=== PATIENT | male | born 1950 | race Caucasian/White ===

== ENCOUNTER 2019-04-08 08:52 | Day surgery (SDC) | payer MEDICARE, BC ==
[2019-04-05 12:08] VITALS: BMI 28.5
[~2019-04-08 08:52] MED LIST: LACTATED RINGERS 1,000 ML IV SCH; LIDOCAINE 1% 20 ML VIAL (10MG/ML) FOR IV START INTRADERMA PRN
[2019-04-08 09:11] VITALS: RESP 18; TEMP 97.8
[2019-04-08] MEDS ORDERED: LACTATED RINGERS 1,000 ML IV ONE (09:30)
[2019-04-08] MEDS ORDERED: PROPOFOL 10 MG/ML 20 ML VIAL IV ONE (09:57)
[2019-04-08] MEDS ORDERED: LIDOCAINE 1% INJ 10MG/ML (20 ML MDV) ONE (09:57)
--- NOTE | 2019-04-08 10:26 | P.PCN ---
Date of Procedure: 04/08/19 Description of Procedure: BRIEF HISTORY: Patient is a 68-year-old, pleasant, male patient presenting for outpatient EGD for evaluation of symptoms of epigastric abdominal pain. He reports has been present over the past few months. He was started on Prilosec therapy. He reports improvement in the frequency and intensity on PPI therapy however still present. PROCEDURE PERFORMED: Esophagogastroduodenoscopy with biopsy. PREOPERATIVE DIAGNOSIS: Epigastric abdominal pain. ESTIMATED BLOOD LOSS: Minimal. IV sedation per anesthesia. PROCEDURE: After informed consent was obtained, the patient was brought into the endoscopy unit. IV sedation was administered by Anesthesia under continuous monitoring. Initially the Olympus GIF-190 video endoscope was inserted into the mouth. Esophagus intubated without any difficulty. It was gradually advanced into the stomach and duodenum and carefully examined. The bulb and the second part of the duodenum appeared normal, with biopsies taken to rule out celiac sprue. The scope at this time was withdrawn to the stomach, adequately insufflated with air, and upon careful examination, mucosa of the antrum, body, cardia and the fundus appeared grossly normal, however there was diffuse punctate erythema in the antrum and body suggestive of mild gastritis with biopsies taken. The scope was then withdrawn into the esophagus. The GE junction was located at 39 cm from the incisors and biopsied to rule out reflux esophagitis . The esophagus appeared normal. There were no erosions or ulcerations seen and the patient tolerated the procedure well. IMPRESSION: 1. Mild gastritis antrum and body biopsied . 2. Biopsies of the duodenum and GE junction. RECOMMENDATIONS: The findings of this examination were discussed with the patient and his fianc. Okay to resume diet. Okay to resume medications. Await pathology from elsie fontenot.
[2019-04-08 10:57] VITALS: BP 144/78; PULSE 66
== END 2019-04-08 11:14 | disposition home or self-care (01) ==
LOC: ORWHC2ENDO 08:52
PROVIDERS: ATTEND Internal Medicine
DX: K29.80 Duodenitis without bleeding (principal); K29.50 Unspecified chronic gastritis without bleeding; K21.9 Gastro-esophageal reflux disease without esophagitis; Z87.891 Personal history of nicotine dependence; Z80.0 Family history of malignant neoplasm of digestive organs; E78.5 Hyperlipidemia, unspecified; N40.0 Benign prostatic hyperplasia without lower urinary tract symptoms; Z79.899 Other long term (current) drug therapy
CPT/HCPCS: 88305; 43239; J2001; J2704

== ENCOUNTER 2020-10-18 | Inpatient (IN) | payer MEDICARE, BC | END 2020-10-26 16:10 | disposition home health service (06) | DRG 854 | PROVIDERS: ADMIT Internal Medicine | PROC: BF52200 Other Imaging of Gallbladder using Fluorescing Agent, Indocyanine Green Dye, Intraoperative (ICD-10-PCS; principal; 2020-10-21) | PROC: 0FT44ZZ Resection of Gallbladder, Percutaneous Endoscopic Approach (ICD-10-PCS; principal; 2020-10-21) | PROC: 0DNU4ZZ Release Omentum, Percutaneous Endoscopic Approach (ICD-10-PCS; principal; 2020-10-21) | PROC: 8E0W4CZ Robotic Assisted Procedure of Trunk Region, Percutaneous Endoscopic Approach (ICD-10-PCS; principal; 2020-10-21) | DX: A41.9 Sepsis, unspecified organism (principal); K80.63 Calculus of gallbladder and bile duct with acute cholecystitis with obstruction; I42.9 Cardiomyopathy, unspecified; K83.09 Other cholangitis; K82.A1 Gangrene of gallbladder in cholecystitis; I95.9 Hypotension, unspecified; I11.9 Hypertensive heart disease without heart failure; E78.5 Hyperlipidemia, unspecified; Z20.822 Contact with and (suspected) exposure to COVID-19; B96.20 Unspecified Escherichia coli [E. coli] as the cause of diseases classified elsewhere; K66.0 Peritoneal adhesions (postprocedural) (postinfection); K21.9 Gastro-esophageal reflux disease without esophagitis; N40.0 Benign prostatic hyperplasia without lower urinary tract symptoms; I08.0 Rheumatic disorders of both mitral and aortic valves; I45.10 Unspecified right bundle-branch block; Z79.82 Long term (current) use of aspirin; Z79.899 Other long term (current) drug therapy; Z87.891 Personal history of nicotine dependence; Z87.19 Personal history of other diseases of the digestive system; Z90.49 Acquired absence of other specified parts of digestive tract; Z98.890 Other specified postprocedural states; Z85.038 Personal history of other malignant neoplasm of large intestine; Z80.0 Family history of malignant neoplasm of digestive organs; Z80.8 Family history of malignant neoplasm of other organs or systems | CPT/HCPCS: 36410; 36415; 71046; 74018; 76705; 76937; 80048; 80053; 81003; 82550; 83690; 83735; 83880; 84484; 85025; 85027; 85379; 85610; 85730; 87040; 87070; 87075; 87077; 87186; 87205; 87324; 87635; 88304; 93005; 96374; 99285 ==

== ENCOUNTER 2020-12-03 17:11 | Inpatient (IN) | payer MEDICARE, BC ==
[2020-12-03] MEDS ORDERED: SODIUM CHLORIDE 0.9% 500 ML 500 ML IV STA (17:26)
[2020-12-03] MEDS ORDERED: SODIUM CHLORIDE 0.9% 1,000 ML IV STA ×2 (17:26)
[2020-12-03] MEDS ORDERED: ACETAMINOPHEN TAB 325 MG TAB PO STA (17:26)
[2020-12-03] MEDS ORDERED: cefTRIAXone IN SWFI 1,000 MG/10 ML SYRINGE IVP STA (17:27)
--- NOTE | 2020-12-03 17:53 | ED ---
Fever HPI - General Source: patient Mode of arrival: ambulatory Limitations: no limitations <Cole Santana - Last Filed: 12/03/20 19:06> <Abhishek Alvarado - Last Filed: 12/03/20 21:02> - General Chief Complaint: Fever Stated Complaint: PostOp Diarrhea/Fever Time Seen by Provider: 12/03/20 17:26 - History of Present Illness Initial Comments: 70-year-old male presents to emergency room with a chief complaint of fever. Patient reports he is also developed diarrhea earlier today, going up to 10 times to the bathroom. States it is a semi-formed stool. States about 10 days ago he finished IV antibiotics through a midline that he has been taking for approximately several weeks prior after developing necrosis in his gallbladder. States he underwent a cholecystectomy by Dr. Arzola. He denies any nausea or vomiting at this time. Denies any abdominal pain fevers or chills. Denies any URI-like symptoms. Vaccinated. No cough. Denies any obstructive or infectious urinary symptoms. (Cole Santana) - Related Data Home Medications Medication Instructions Recorded Confirmed Simvastatin [Zocor] 80 mg PO DAILY 04/17/15 12/03/20 Loratadine 10 mg PO DAILY 04/05/19 12/03/20 Tamsulosin [Flomax] 0.4 mg PO DAILY 04/05/19 12/03/20 Aspirin EC [Ecotrin Low Dose] 81 mg PO DAILY 10/18/20 12/03/20 Carvedilol [Coreg] 12.5 mg PO BID 10/18/20 12/03/20 Spironolactone 50 mg PO DAILY 10/18/20 12/03/20 Valsartan [Diovan] 320 mg PO HS 10/18/20 12/03/20 amLODIPine [Norvasc] 10 mg PO DAILY 10/18/20 12/03/20 Allergies Allergy/AdvReac Type Severity Reaction Status Date / Time No Known Allergies Allergy Verified 12/03/20 18:12 Review of Systems ROS Other: All systems not noted in ROS Statement are negative. <Cole Santana - Last Filed: 12/03/20 19:06> ROS Other: All systems not noted in ROS Statement are negative. <Abhishek Alvarado - Last Filed: 12/03/20 21:02> ROS Statement: Those systems with pertinent positive or pertinent negative responses have been documented in the HPI. Past Medical History Past Medical History: Hyperlipidemia, Hypertension Additional Past Medical History / Comment(s): states "i have a knot feeling in the top of my stomach",hx colon CA 21 yrs ago-no chemo or radiation,BPH History of Any Multi-Drug Resistant Organisms: None Reported Past Surgical History: Appendectomy, Cholecystectomy Additional Past Surgical History / Comment(s): COLON CANCER BOWEL RESECTION-3 inches removed Past Anesthesia/Blood Transfusion Reactions: No Reported Reaction Past Psychological History: No Psychological Hx Reported Smoking Status: Former smoker Past Alcohol Use History: Occasional Past Drug Use History: None Reported - Past Family History Father Family Medical History: Cancer Additional Family Medical History / Comment(s): colon CA,mets <Cole Santana - Last Filed: 12/03/20 19:06> General Exam Limitations: no limitations General appearance: alert, in no apparent distress Head exam: Present: atraumatic, normocephalic, normal inspection Eye exam: Present: normal appearance, PERRL, EOMI Pupils: Present: normal accommodation ENT exam: Present: normal exam, normal oropharynx, mucous membranes moist Neck exam: Present: normal inspection, full ROM. Absent: tenderness Respiratory exam: Present: normal lung sounds bilaterally. Absent: respiratory distress, wheezes, rales, rhonchi, stridor Cardiovascular Exam: Present: regular rate, normal rhythm, normal heart sounds. Absent: systolic murmur GI/Abdominal exam: Present: soft. Absent: distended, tenderness, guarding, rebound Extremities exam: Present: normal inspection, full ROM, normal capillary refill. Absent: tenderness, pedal edema, joint swelling Back exam: Present: normal inspection, full ROM. Absent: tenderness Neurological exam: Present: alert, oriented X3 Psychiatric exam: Present: normal affect, normal mood Skin exam: Present: warm, dry, intact, normal color <Cole Santana - Last Filed: 12/03/20 19:06> Course Vital Signs 12/03/20 12/03/20 17:17 18:20 Temperature 101.6 F H 99.5 F Pulse Rate 129 H 112 H Respiratory 16 18 Rate Blood Pressure 149/76 120/63 O2 Sat by Pulse 96 95 Oximetry Medical Decision Making - Lab Data Result diagrams: 12/03/20 17:41 12/03/20 17:41 <Cole Santana - Last Filed: 12/03/20 19:06> - Lab Data Result diagrams: 12/03/20 17:41 12/03/20 17:41 <Abhishek Alvarado - Last Filed: 12/03/20 21:02> - Medical Decision Making 70-year-old male presents to emergency room with a chief complaint of fever. On physical examination, no abdominal CVA tenderness. He was initially febrile and tachycardic. Patient was given Tylenol, IV fluids and Rocephin. Laboratory work revealed leukocytosis of 16,000. CMP unremarkable. UA pending. C. diff pending. CT of abdomen and pelvis pending. Lactic acid within normal limits. At this time, patient care signed off to Dr. Alvarado. (Cole Santana) I reevaluated the patient and he continued to have diarrhea in the emergency department however the C. diff was not initially sent for some reason. Patient's CAT scan was done and it did show an area of fluid around the emesis he noted that he could be a seroma versus abscess. I spoke with some physicians he agreed to observe the patient and I consult the surgery to make determination if they thought that was an abscess and a second stool sample was collected and sent. (Abhishek Alvarado) - Lab Data Lab Results 12/03/20 12/03/20 12/03/20 Range/Units 17:41 17:41 17:41 WBC 16.5 H (3.8-10.6) k/uL RBC 4.41 (4.30-5.90) m/uL Hgb 13.7 (13.0-17.5) gm/dL Hct 40.7 (39.0-53.0) % MCV 92.2 (80.0-100.0) fL MCH 31.1 (25.0-35.0) pg MCHC 33.8 (31.0-37.0) g/dL RDW 13.3 (11.5-15.5) % Plt Count 302 (150-450) k/uL MPV 7.6 Neutrophils % 87 % Lymphocytes % 6 % Monocytes % 5 % Eosinophils % 1 % Basophils % 0 % Neutrophils # 14.2 H (1.3-7.7) k/uL Lymphocytes # 1.0 (1.0-4.8) k/uL Monocytes # 0.8 (0-1.0) k/uL Eosinophils # 0.2 (0-0.7) k/uL Basophils # 0.0 (0-0.2) k/uL Sodium 136 L (137-145) mmol/L Potassium 4.4 (3.5-5.1) mmol/L Chloride 105 (98-107) mmol/L Carbon Dioxide 23 (22-30) mmol/L Anion Gap 8 mmol/L BUN 15 (9-20) mg/dL Creatinine 0.70 (0.66-1.25) mg/dL Est GFR (CKD-EPI)AfAm >90 (>60 ml/min/1.73 sqM) Est GFR (CKD-EPI)NonAf >90 (>60 ml/min/1.73 sqM) Glucose 115 H (74-99) mg/dL Plasma Lactic Acid [place] (0.7-2.0) mmol/L Calcium 9.6 (8.4-10.2) mg/dL Total Bilirubin 0.4 (0.2-1.3) mg/dL AST 27 (17-59) U/L ALT 30 (4-49) U/L Alkaline Phosphatase 53 (38-126) U/L Total Protein 6.5 (6.3-8.2) g/dL Albumin 4.2 (3.5-5.0) g/dL Urine Color Light Yellow Urine Appearance Clear (Clear) Urine pH 5.5 (5.0-8.0) Ur Specific [place] 1.036 H (1.001-1.035) Urine Protein Negative (Negative) Urine Glucose (UA) Negative (Negative) Urine Ketones Negative (Negative) Urine Blood Negative (Negative) Urine Nitrite Negative (Negative) Urine Bilirubin Negative (Negative) Urine Urobilinogen <2.0 (<2.0) mg/dL Ur Leukocyte Esterase Negative (Negative) 12/03/20 Range/Units 17:41 WBC (3.8-10.6) k/uL RBC (4.30-5.90) m/uL Hgb (13.0-17.5) gm/dL Hct (39.0-53.0) % MCV (80.0-100.0) fL MCH (25.0-35.0) pg MCHC (31.0-37.0) g/dL RDW (11.5-15.5) % Plt Count (150-450) k/uL MPV Neutrophils % % Lymphocytes % % Monocytes % % Eosinophils % % Basophils % % Neutrophils # (1.3-7.7) k/uL Lymphocytes # (1.0-4.8) k/uL Monocytes # (0-1.0) k/uL Eosinophils # (0-0.7) k/uL Basophils # (0-0.2) k/uL Sodium (137-145) mmol/L Potassium (3.5-5.1) mmol/L Chloride (98-107) mmol/L Carbon Dioxide (22-30) mmol/L Anion Gap mmol/L BUN (9-20) mg/dL Creatinine (0.66-1.25) mg/dL Est GFR (CKD-EPI)AfAm (>60 ml/min/1.73 sqM) Est GFR (CKD-EPI)NonAf (>60 ml/min/1.73 sqM) Glucose (74-99) mg/dL Plasma Lactic Acid [place] 1.0 (0.7-2.0) mmol/L Calcium (8.4-10.2) mg/dL Total Bilirubin (0.2-1.3) mg/dL AST (17-59) U/L ALT (4-49) U/L Alkaline Phosphatase (38-126) U/L Total Protein (6.3-8.2) g/dL Albumin (3.5-5.0) g/dL Urine Color Urine Appearance (Clear) Urine pH (5.0-8.0) Ur Specific [place] (1.001-1.035) Urine Protein (Negative) Urine Glucose (UA) (Negative) Urine Ketones (Negative) Urine Blood (Negative) Urine Nitrite (Negative) Urine Bilirubin (Negative) Urine Urobilinogen (<2.0) mg/dL Ur Leukocyte Esterase (Negative) - EKG Data EKG Comments: Sinus tachycardia with right bundle branch block Ventricular rate 109, [place] 130, QRS 124, QTC 447. (Cole Santana) Disposition <Cole Santana - Last Filed: 12/03/20 19:06> Time of Disposition: 21:02 <Abhishek Alvarado - Last Filed: 12/03/20 21:02> Clinical Impression: Diarrhea, Postoperative complication, Leukocytosis Disposition: ADMITTED IP TO THIS HOSP Referrals: Rip Jung MD [Primary Care Provider] - 1-2 days
[2020-12-03 18:09] LABS: Basophils % (A) 0 %; Eosinophils # (A) 0.2 k/uL (0-0.7); Eosinophils % (A) 1 %; HCT 40.7 % (39.0-53.0); HGB 13.7 gm/dL (13.0-17.5); Lymphocytes % (A) 6 %; MCH 31.1 pg (25.0-35.0); MCHC 33.8 g/dL (31.0-37.0); MCV 92.2 fL (80.0-100.0); Mean Platelet Volume 7.6; Monocytes # (A) 0.8 k/uL (0-1.0); Monocytes % (A) 5 %; Neutrophils # (A) 14.2 k/uL (1.3-7.7); Neutrophils % (A) 87 %; Platelet Count 302 k/uL (150-450); RBC 4.41 m/uL (4.30-5.90); RDW 13.3 % (11.5-15.5); WBC 16.5 k/uL (3.8-10.6)
[2020-12-03 18:19] LABS: ALT 30 U/L (4-49); AST 27 U/L (17-59); African American GFR (CKD) >90 (>60 ml/min/1.73 sqM); Albumin 4.2 g/dL (3.5-5.0); Alkaline Phosphatase 53 U/L (38-126); Anion Gap 8 mmol/L; Blood Urea Nitrogen 15 mg/dL (9-20); Calcium 9.6 mg/dL (8.4-10.2); Carbon Dioxide 23 mmol/L (22-30); Chloride 105 mmol/L (98-107); Glucose 115 mg/dL (74-99); Non-African American GFR(CKD) >90 (>60 ml/min/1.73 sqM); Potassium 4.4 mmol/L (3.5-5.1); Sodium 136 mmol/L (137-145); Total Bilirubin 0.4 mg/dL (0.2-1.3); Total Protein 6.5 g/dL (6.3-8.2)
--- NOTE | 2020-12-03 20:30 | CT ---
EXAMINATION TYPE: CT abdomen pelvis w con DATE OF EXAM: 12/03/2020 COMPARISON: None HISTORY: Diarrhea and fever x2 days. History of recent cholecystectomy. CT DLP: 1347.5 mGycm, Automated Exposure Control for Dose Reduction was Utilized. CONTRAST: CT scan of the abdomen and pelvis is performed with oral and with IV Contrast, patient injected with 100ml mL of Isovue 300. FINDINGS: LUNG BASES: Subsegmental atelectasis. INCLUDED CARDIAC STRUCTURES: Intracardiac calcifications. No cardiac enlargement or pericardial effus ion. LIVER: Mild central periportal edema. GALLBLADDER : Postsurgical changes are seen in the gallbladder fossa. There is a peripheral loculated enhancing fluid collection the gallbladder fossa measuring 4.7 x 3.4 x 2.5 cm (CC, TV, AP) and close proximity to the surgical [place]. Mild surrounding inflammatory changes are noted. BILIARY TREE: No abnormal biliary tree dilation. PANCREAS: No significant abnormality is seen. SPLEEN: No significant abnormality is seen. ADRENALS: No significant abnormality is seen. KIDNEYS AND URETERS: No significant abnormality is seen. URINARY BLADDER: No significant abnormality is appreciated. PROSTATE: Prominent in size. ESOPHAGUS: No significant abnormality is seen. STOMACH: No significant abnormality is seen. SMALL BOWEL: No significant abnormality is seen. LARGE BOWEL: Colonic diverticulosis noted. APPENDIX: Not definitely visualized. HERNIAS: No significant abnormality is seen. PERITONEUM/MESENTRY: No pneumoperitoneum or ascites. LYMPH NODES: No enlarged retroperitoneal or pelvic lymph nodes are appreciated. MAJOR VASCULAR STRUCTURES: Nonaneurysmal aorta. Inferior vena cava and normal location and caliber. A therosclerotic calcifications in the wall of the aorta and its terminal branches. OSSEOUS STRUCTURES: No acute osseous abnormality. Mild to moderate degenerative changes seen in the t horacic and lumbar spine. SOFT TISSUE: Soft tissue swelling over the right, midline and left lower abdomen related to recent [place] rgical access. IMPRESSION: Postsurgical changes are seen in the gallbladder fossa. There is a peripheral loculated enhancing flu id collection in the gallbladder fossa measuring 4.7 x 3.4 x 2.5 cm (CC, TV, AP) in close proximity t o the surgical [place]. Mild surrounding inflammatory changes are noted. This fluid collection may re present an abscess or postsurgical seroma/hematoma. Clinical correlation with recent surgical history recommended. Furthermore given close proximity of this fluid collection into the colonic diverticula a diverticulitis with abscess cannot be entirely excluded however favored to be less likely due to t he recent surgical history. Mild central periportal edema, nonspecific could be reactive.
[2020-12-03 20:59] LABS: Appearance,Urine Clear (Clear); Bilirubin,Urine Negative (Negative); Blood,Urine Negative (Negative); Color,Urine Light Yellow; Glucose,Urine (UA) Negative (Negative); Ketones,Urine Negative (Negative); Leukocyte Esterase,Urine Negative (Negative); Nitrite,Urine Negative (Negative); PH, Urine 5.5 (5.0-8.0); Protein,Urine Negative (Negative); Specific Gravity,Urine 1.036 (1.001-1.035); Urobilinogen,Urine <2.0 mg/dL (<2.0)
[2020-12-04] MEDS ORDERED: ACETAMINOPHEN TAB 325 MG TAB PO PRN (01:19)
--- NOTE | 2020-12-04 01:25 | P.HPIM ---
History of Present Illness H&P Date: 12/03/20 Chief Complaint: Diarrhea 70-year-old male with hypertension, BPH, history of colon cancer status post bowel resection 21 years ago Patient comes in today due to frequent loose bowel movements and fevers. He reports that since surgery that was done about a month and a half ago for lap gisel which showed necrotic gallbladder with mural wall abscesses at the time he was kept on IV antibiotics initially and then switched to oral antibiotics which she finished about 10 days ago. Since then he always had none formed bowel movements sometimes loose, however today he felt very bad with fevers and very frequent loose bowel movements he was going to the bathroom almost every hour denies any any bloody bowel movements or melena denies any abdominal pain denies any chest pain or trouble breathing denies any nausea vomiting. He claims that the day before he was feeling fine and he went biking. In the ED patient was diagnosed with C. diff, he denies any history of C. diff in the past. CT of the abdomen showed fluid collection in the gallbladder fossa near the [place] about 4.73.42.5 cm Blood work showed leukocytosis, normal renal function Review of Systems Pertinent positives as noted in HPI. All other systems were reviewed and are negative Past Medical History Past Medical History: Hyperlipidemia, Hypertension, Prostate Disorder Additional Past Medical History / Comment(s): hx colon CA 21 yrs ago-no chemo or radiation,BPH History of Any Multi-Drug Resistant Organisms: None Reported Past Surgical History: Appendectomy, Cholecystectomy Additional Past Surgical History / Comment(s): COLON CANCER BOWEL RESECTION-3 inches removed Past Anesthesia/Blood Transfusion Reactions: No Reported Reaction Past Psychological History: No Psychological Hx Reported Smoking Status: Former smoker Past Alcohol Use History: Occasional Past Drug Use History: None Reported - Past Family History Father Family Medical History: Cancer Additional Family Medical History / Comment(s): colon CA,mets Medications and Allergies Home Medications Medication Instructions Recorded Confirmed Type Simvastatin [Zocor] 80 mg PO DAILY 04/17/15 12/03/20 History Loratadine 10 mg PO DAILY 04/05/19 12/03/20 History Tamsulosin [Flomax] 0.4 mg PO DAILY 04/05/19 12/03/20 History Aspirin EC [Ecotrin Low Dose] 81 mg PO DAILY 10/18/20 12/03/20 History Carvedilol [Coreg] 12.5 mg PO BID 10/18/20 12/03/20 History Spironolactone 50 mg PO DAILY 10/18/20 12/03/20 History Valsartan [Diovan] 320 mg PO HS 10/18/20 12/03/20 History amLODIPine [Norvasc] 10 mg PO DAILY 10/18/20 12/03/20 History Allergies Allergy/AdvReac Type Severity Reaction Status Date / Time No Known Allergies Allergy Verified 12/03/20 18:12 Physical Exam Vitals: Vital Signs Temp Pulse Resp BP Pulse Ox 12/03/20 18:20 99.5 F 112 H 18 120/63 95 12/03/20 17:17 101.6 F H 129 H 16 149/76 96 Intake and Output 12/03/20 12/03/20 12/03/20 06:59 14:59 22:59 Other: Weight 90.718 kg Constitutional: No acute distress, conversant, pleasant Eyes: Anicteric sclerae, moist conjunctiva, Pupils equal round reactive to light ENMT: NC/AT Oropharynx clear, no erythema, or exudates Neck: Supple, FROM, no masses, or JVD No carotid bruits No thyromegaly Lungs: Clear to auscultation Clear to percussion Normal respiratory effort, no accessory muscle use Cardiovascular: Heart regular in rate and rhythm, No murmurs, gallops, or rubs No peripheral edema Abdominal: Soft, surgical wounds of lap gisel healing well no surrounding induration or erythema no drainage Nontender, no guarding, rebound or rigidity Abdomen moving with respiration Normoactive bowel sounds No hepatomegaly, No splenomegaly No palpable mass No abdominal wall hernia noted Skin: Normal temperature, tone, texture, turgor No induration No subcutaneous nodules No rash, lesions No ulcers Extremities: No digital cyanosis No clubbing Pedal pulses intact and symmetrical Radial pulses intact and symmetrical No calf tenderness Psychiatric: Alert and oriented to person, place and time Appropriate affect fair judgement Neuro Muscles Strength 5/5 in all 4 extremities Sensation to light touch grossly present throughout Cranial nerves II-XII grossly intact No focal sensory deficits Lymphatics: no palpable cervical or supraclavicular , or inguinal lymph nodes Results CBC & Chem 7: 12/03/20 17:41 12/03/20 17:41 Labs: Abnormal Lab Results - Last 24 Hours (Table) 12/03/20 12/03/20 12/03/20 Range/Units 17:41 17:41 17:41 WBC 16.5 H (3.8-10.6) k/uL Neutrophils # 14.2 H (1.3-7.7) k/uL Sodium 136 L (137-145) mmol/L Glucose 115 H (74-99) mg/dL Ur Specific [place] 1.036 H (1.001-1.035) Assessment and Plan Assessment: Acute severe C. diff colitis Patient started on oral vancomycin, continue for 10 days Tylenol for fever when necessary IV fluid hydration with normal saline Contact precautions Follow-up renal function CT findings of fluid collection around the gallbladder fossa new [place], general surgery consult for evaluation, due to recent history of lap gisel about 1.5 months ago Chronic conditions Hypertension resume home medications amlodipine, Coreg, losartan Hyperlipidemia resume statin CODE STATUS: Full code DVT prophylaxis: Heparin subcu 3 times a day Discussed with: Patient, ER, RN Anticipated length of stay more than [address]: Home A total of 75 minutes was spent on the care of this complex patient more than 50 % of the time was spent in counseling and care coordination.
[2020-12-04] MEDS: VALSARTAN 160 MG TAB PO SCH ×2 (01:30→21:12)
[2020-12-04] MEDS: carvediloL 12.5 MG TAB PO SCH ×3 (01:30→17:08)
[2020-12-04] MEDS: VANCOMYCIN 125 MG CAPSULE PO SCH ×5 (01:30→21:12)
[2020-12-04] MEDS: SODIUM CHLORIDE 0.9% 1,000 ML IV SCH ×4 (02:16→22:49)
[2020-12-04 05:58] LABS: Basophils % (A) 0 %; Eosinophils # (A) 0.2 k/uL (0-0.7); Eosinophils % (A) 2 %; HCT 37.2 % (39.0-53.0); HGB 12.7 gm/dL (13.0-17.5); Lymphocytes # (A) 1.5 k/uL (1.0-4.8); Lymphocytes % (A) 13 %; MCH 31.9 pg (25.0-35.0); MCHC 34.2 g/dL (31.0-37.0); MCV 93.2 fL (80.0-100.0); Mean Platelet Volume 7.2; Monocytes # (A) 0.8 k/uL (0-1.0); Monocytes % (A) 7 %; Neutrophils % (A) 77 %; Platelet Count 276 k/uL (150-450); RDW 13.9 % (11.5-15.5); WBC 11.7 k/uL (3.8-10.6)
[2020-12-04] MEDS: TAMSULOSIN 0.4 MG CAP.ER.24H PO SCH (07:55)
[2020-12-04] MEDS: ASPIRIN 81 MG PO SCH (07:55)
[2020-12-04] MEDS: amLODIPine 10 MG TAB PO SCH (07:55)
[2020-12-04] MEDS: HEPARIN SODIUM,PORCINE/PF 5,000 UNIT/0.5 ML SYRINGE SQ SCH ×3 (07:57→22:48)
[2020-12-04] MEDS: ATORVASTATIN 40 MG TAB PO SCH (08:02)
[2020-12-04 11:48] LABS: African American GFR (CKD) 106.4 (60.0-200.0); Anion Gap 8.6 mmol/L (4.00-12.00); BUN/Creat Ratio 12.5 Ratio (12.00-20.00); Calcium 9.1 mg/dL (8.7-10.3); Carbon Dioxide 25.4 mmol/L (21.6-31.8); Non-African American GFR(CKD) 91.8 (60.0-200.0); Potassium 4.3 mmol/L (3.5-5.5)
--- NOTE | 2020-12-04 13:04 | P.PN ---
Subjective Progress Note Date: 12/04/20 Hospital course: Patient is a very pleasant 70-year-old male with a past medical history of hypertension, hyperlipidemia, BPH, and colon cancer status post resection 21 years ago. Patient presented to the emergency department on 12/03/20 with a chief complaint of fever and diarrhea status post recently undergoing a laparoscopic cholecystectomy on 10/21/[address] Booth secondary to findings of a necrotic gallbladder with mural wall abscess which resulted in extended course of IV antibiotics followed by 10 day course of oral antibiotics. Patient reports he recently completed these antibiotics approximately 10 days ago and was concerned when he developed a fever and diarrhea. Upon arrival to the ER patient was found to have elevated temp of 101.6F, tachycardia with heart rate of 102, leukocytosis with WBC count of 16.5, and was positive for Clostridium difficile infection. A CT abdomen and pelvis without contrast was completed revealing postsurgical changes with a peripheral loculated enhancing fluid collection in the gallbladder fossa measuring 4.7 x 3.4 x 2.5 cm with mild surrounding inflammatory changes reported. Patient was started on oral vancomycin and admitted under our services with consultation to general surgery. Physical exam: Patient was seen and fully evaluated at the bedside this morning. He reports continued episodes of diarrhea but significant improvement from yesterday. He denies having any dominant pain, discomfort, or cramping. He denies having any noted melena or hematochezia. Patient also denies any nausea, vomiting, or hematemesis. Vital signs reviewed and stable. General: Nontoxic, no distress and appears stated age. Derm: Skin warm and dry, normal coloration for ethnicity. Head: Atraumatic, normocephalic and symmetric. Eyes: EOMs intact, no lid lag, and anicteric sclera Mouth: no lip lesions, mucus membranes moist Cardiovascular: regular rate and rhythm with normal S1S2, no murmur, positive posterior tibial pulses bilaterally, and cap refill < 2 seconds. Lungs: Respirations even, regular, and unlabored on room air. Lungs CTA bilate rally, no rhonchi, no rales, no wheezing, and no accessory muscle usage. Abdominal: soft, nontender to palpation, no guarding, no appreciable organomegaly Ext: ROM intact. No gross muscle atrophy, no edema, no contractures Neuro: Speech clear, face symmetrical and CN II-XII grossly intact with no noted focal neuro deficits Psych: Alert and oriented to person, place, time, and situation. Appropriate and pleasant affect. Assessment and Plan of Care: Acute severe C. diff colitis -Continue oral vancomycin for 10 days -Tylenol as needed for fever -Continue fluid hydration with IV fluids -Contact precautions Abnormal CT findings of loculated fluid collection in gallbladder fossa status post recent cholecystectomy on 10/21/20 -A CT abdomen and pelvis without contrast was completed revealing postsurgical changes with a peripheral loculated enhancing fluid collection in the gallbladder fossa measuring 4.7 x 3.4 x 2.5 cm with mild surrounding inflammatory changes reported. -NPO until cleared by general surgery -Consult to Gen. surgery Hypertension -Monitor vital signs and continue daily medication regimen with amlodipine and carvedilol Hyperlipidemia -Continue daily medication regimen with simvastatin 80 mg nightly. CODE STATUS: Full code DVT prophylaxis: Heparin Discussed with: Patient, patient's , and RN Anticipated discharge date: Clinical course to determine Anticipated discharge place: Home A total of 45 minutes was spent on the care of this complex patient more than 50% of the time was spent in counseling and care coordination. Objective - Vital Signs Vital signs: Vital Signs Temp 98.5 F 12/04/20 11:26 Pulse 81 12/04/20 11:26 Resp 20 12/04/20 11:26 BP 112/58 12/04/20 11:26 Pulse Ox 94 L 12/04/20 11:26 Intake & Output 12/03/20 12/04/20 12/04/20 18:59 06:59 18:59 Output Total 2 Balance -2 Weight 90.718 kg 90.718 kg Output: Urine 2 Other: Voiding Method Toilet Toilet # Voids 2 # Bowel Movements 4 - Labs CBC & Chem 7: 12/04/20 05:16 12/04/20 05:16 Labs: Abnormal Lab Results - Last 24 Hours (Table) 12/03/20 12/03/20 12/03/20 Range/Units 17:41 17:41 17:41 WBC 16.5 H (3.8-10.6) k/uL RBC (4.30-5.90) m/uL Hgb (13.0-17.5) gm/dL Hct (39.0-53.0) % Neutrophils # 14.2 H (1.3-7.7) k/uL Sodium 136 L (137-145) mmol/L Glucose 115 H (74-99) mg/dL Ur Specific [place] 1.036 H (1.001-1.035) C. difficile (EIA) Intrp (Negative) 12/03/20 12/04/20 12/04/20 Range/Units 21:04 05:16 05:16 WBC 11.7 H (3.8-10.6) k/uL RBC 4.00 L (4.30-5.90) m/uL Hgb 12.7 L (13.0-17.5) gm/dL Hct 37.2 L (39.0-53.0) % Neutrophils # 9.0 H (1.3-7.7) k/uL Sodium (137-145) mmol/L Glucose 119 H (74-99) mg/dL Ur Specific [place] (1.001-1.035) C. difficile (EIA) Intrp Positive A (Negative)
--- NOTE | 2020-12-04 13:49 | P.GSCN ---
History of Present Illness Consult date: 12/04/20 History of present illness: CHIEF COMPLAINT: Diarrhea HISTORY OF PRESENT ILLNESS: This is a 70-year-old male who was hospitalized in September 2020 with a gangrenous cholecystitis and sepsis and is status post robotic- assisted subtotal cholecystectomy. Also has a history of colon cancer status post bowel resection 21 years ago, hypertension BPH and hyperlipidemia. Patient presents to the hospital with complaints of diarrhea and fever. Symptoms started yesterday. He has had multiple loose watery stools. He was concerned because he continued to have a fever. He came into the hospital for further evaluation and treatment. He finished antibiotics 10 days ago and had been on them for his gangrenous gallbladder. His stool study was positive for C. diff colitis and he has been started on oral vancomycin. He has had fever, tachycardia and elevated white count. He had a computed tomography scan of the abdomen and pelvis completed that had shown a fluid collection in the gallbladder fossa and therefore surgical consult was placed. Patient denies any right upper quadrant abdominal pain. He denies any drainage from his incision sites. PAST MEDICAL HISTORY: See list. PAST SURGICAL HISTORY: See list. MEDICATIONS: See list. ALLERGIES: See list. SOCIAL HISTORY: No illicit drug use. REVIEW OF SYSTEMS: CONSTITUTIONAL: Denies fever or chills. HEENT: Denies blurred vision, vision changes, or eye pain. Denies hemoptysis ENDOCRINE: Denies heat or cold intolerance. CARDIOVASCULAR: Denies chest pain or pressure. RESPIRATORY: No shortness of breath. GASTROINTESTINAL: Denies abdominal pain. Denies nausea or vomiting. NEURO: Denies history of seizures. PSYCH: No depression or suicidal ideation HEMATOLOGIC: Denies bleeding disorders. LYMPHATIC: The patient denies any lumps and bumps around the neck. GENITOURINARY: Denies any blood in urine or increased urinary frequency. MUSCULOSKELETAL: Denies myalgias. Denies joint swelling. Denies decreased range of motion beyond patients baseline. SKIN: Denies pruitis. Denies rash. PHYSICAL EXAM: VITAL SIGNS: Reviewed GENERAL: Well-developed in no acute distress. HEENT: No sclera icterus. Extraocular movements grossly intact. Moist buccal mucosa. Head is atraumatic, normocephalic. Hears conversational speech. No nasal drainage. NECK: Supple without lymphadenopathy. CHEST: Non-labored respirations and equal bilateral excursions. CARDIOVASCULAR: Palpable 2+ radial pulses. ABDOMEN: Soft. Nondistended. Nontender. Incision sites have healed. No evidence of drainage or infection. MUSCULOSKELETAL: No clubbing or cyanosis. NEUROLOGIC: No focal or lateralizing signs. Cranial nerves II through XII grossly intact. PSYCH: Appropriate affect. Alert and oriented to person, place and time. SKIN: Well perfused. Good skin turgor. LABORATORY DATA: WBC 16.5 down to 11.7 hemoglobin 12.7 creatinine 0.8 LFTs normal Urinalysis negative Stool for C. diff positive Covid not detected IMAGING: Computed tomography scan abdomen and pelvis shows postsurgical changes are seen in gallbladder fossa. There is a peripheral loculated enhancing fluid collection in the gallbladder fossa measuring 4.7 x 3.4 x 2.5 cm in close proximity to the surgical [place]. Mild surrounding inflammatory changes are noted. This fluid collection may represent an abscess O post surgical seroma, hematoma. Clinical correlation with recent surgical history recommended. ASSESSMENT: 1. Diarrhea with stool study positive for C. diff colitis 2. Fluid collection noted in the gallbladder fossa is a suspected finding after robotic cholecystectomy. No evidence of infection or complication after surg fredy. PLAN: -Recommend infectious disease consults due to recent antibiotic use and current C. diff colitis infection. Dr. Valladares had managed patient's antibiotics in the outpatient setting. -No plans for surgical intervention -Continue supportive care Thank you for this consultation Physician Caretaker note has been reviewed by physician. Signing provider agrees with the documented findings, assessment, and plan of care. Past Medical History Past Medical History: Hyperlipidemia, Hypertension, Prostate Disorder Additional Past Medical History / Comment(s): hx colon CA 21 yrs ago-no chemo or radiation,BPH History of Any Multi-Drug Resistant Organisms: None Reported Past Surgical History: Appendectomy, Cholecystectomy Additional Past Surgical History / Comment(s): COLON CANCER BOWEL RESECTION-3 inches removed Past Anesthesia/Blood Transfusion Reactions: No Reported Reaction Past Psychological History: No Psychological Hx Reported Smoking Status: Former smoker Past Alcohol Use History: Occasional Past Drug Use History: None Reported - Past Family History Father Family Medical History: Cancer Additional Family Medical History / Comment(s): colon CA,mets Medications and Allergies Home Medications Medication Instructions Recorded Confirmed Type Simvastatin [Zocor] 80 mg PO DAILY 04/17/15 12/03/20 History Loratadine 10 mg PO DAILY 04/05/19 12/03/20 History Tamsulosin [Flomax] 0.4 mg PO DAILY 04/05/19 12/03/20 History Aspirin EC [Ecotrin Low Dose] 81 mg PO DAILY 10/18/20 12/03/20 History Carvedilol [Coreg] 12.5 mg PO BID 10/18/20 12/03/20 History Spironolactone 50 mg PO DAILY 10/18/20 12/03/20 History Valsartan [Diovan] 320 mg PO HS 10/18/20 12/03/20 History amLODIPine [Norvasc] 10 mg PO DAILY 10/18/20 12/03/20 History Allergies Allergy/AdvReac Type Severity Reaction Status Date / Time No Known Allergies Allergy Verified 12/03/20 18:12 Surgical - Exam Vital Signs Temp Pulse Resp BP Pulse Ox 101.6 F H 129 H 16 149/76 96 12/03/20 17:17 12/03/20 17:17 12/03/20 17:17 12/03/20 17:17 12/03/20 17:17 Results - Labs 12/04/20 05:16 12/04/20 05:16 Abnormal Lab Results - Last 24 Hours (Table) 12/03/20 12/03/20 12/03/20 Range/Units 17:41 17:41 17:41 WBC 16.5 H (3.8-10.6) k/uL RBC (4.30-5.90) m/uL Hgb (13.0-17.5) gm/dL Hct (39.0-53.0) % Neutrophils # 14.2 H (1.3-7.7) k/uL Sodium 136 L (137-145) mmol/L Glucose 115 H (74-99) mg/dL Ur Specific [place] 1.036 H (1.001-1.035) C. difficile (EIA) Intrp (Negative) 12/03/20 12/04/20 12/04/20 Range/Units 21:04 05:16 05:16 WBC 11.7 H (3.8-10.6) k/uL RBC 4.00 L (4.30-5.90) m/uL Hgb 12.7 L (13.0-17.5) gm/dL Hct 37.2 L (39.0-53.0) % Neutrophils # 9.0 H (1.3-7.7) k/uL Sodium (137-145) mmol/L Glucose 119 H (74-99) mg/dL Ur Specific [place] (1.001-1.035) C. difficile (EIA) Intrp Positive A (Negative) Diabetes panel 12/03/20 12/04/20 Range/Units 17:41 05:16 Sodium 136 L 141 (137-145) mmol/L Potassium 4.4 4.3 (3.5-5.1) mmol/L Chloride 105 107 (98-107) mmol/L Carbon Dioxide 23 25.4 (22-30) mmol/L BUN 15 10.0 (9-20) mg/dL Creatinine 0.70 0.8 (0.66-1.25) mg/dL Glucose 115 H 119 H (74-99) mg/dL Calcium 9.6 9.1 (8.4-10.2) mg/dL AST 27 (17-59) U/L ALT 30 (4-49) U/L Alkaline Phosphatase 53 (38-126) U/L Total Protein 6.5 (6.3-8.2) g/dL Albumin 4.2 (3.5-5.0) g/dL Calcium panel 12/03/20 12/04/20 Range/Units 17:41 05:16 Calcium 9.6 9.1 (8.4-10.2) mg/dL Albumin 4.2 (3.5-5.0) g/dL Pituitary panel 12/03/20 12/04/20 Range/Units 17:41 05:16 Sodium 136 L 141 (137-145) mmol/L Potassium 4.4 4.3 (3.5-5.1) mmol/L Chloride 105 107 (98-107) mmol/L Carbon Dioxide 23 25.4 (22-30) mmol/L BUN 15 10.0 (9-20) mg/dL Creatinine 0.70 0.8 (0.66-1.25) mg/dL Glucose 115 H 119 H (74-99) mg/dL Calcium 9.6 9.1 (8.4-10.2) mg/dL Adrenal panel 12/03/20 12/04/20 Range/Units 17:41 05:16 Sodium 136 L 141 (137-145) mmol/L Potassium 4.4 4.3 (3.5-5.1) mmol/L Chloride 105 107 (98-107) mmol/L Carbon Dioxide 23 25.4 (22-30) mmol/L BUN 15 10.0 (9-20) mg/dL Creatinine 0.70 0.8 (0.66-1.25) mg/dL Glucose 115 H 119 H (74-99) mg/dL Calcium 9.6 9.1 (8.4-10.2) mg/dL Total Bilirubin 0.4 (0.2-1.3) mg/dL AST 27 (17-59) U/L ALT 30 (4-49) U/L Alkaline Phosphatase 53 (38-126) U/L Total Protein 6.5 (6.3-8.2) g/dL Albumin 4.2 (3.5-5.0) g/dL
--- NOTE | 2020-12-05 07:05 | CONS ---
CONSULTATION DATE OF SERVICE: 12/04/2020 REASON FOR CONSULTATION: C-difficile colitis. HISTORY OF PRESENT ILLNESS: The patient is a 70-year-old male who was recently admitted to this facility and did have a gangrenous cholecystitis status post cholecystectomy. The patient was treated with IV antibiotic therapy followed by a course of oral antibiotics and the patient completed the antibiotic about 2 weeks ago. The patient did have repeat blood work done on 11/30/2020. The patient did have a normal WBC, normal CRP and normal sedimentation rate and the patient did not have any abdominal pain, nausea, vomiting or any diarrhea. The patient said he was doing well until the day before presentation to the hospital when he started having diarrhea and the patient was going to the bathroom almost 10 times per day every hour on the hour. The patient did have liquidy stools but no blood or mucus in the stools. The patient denies having any nausea or any vomiting and denies having significant abdominal pain. Did have some fever and chills. With these symptoms, the patient presented to the hospital. On arrival to the ER the patient did have fever of 101.6 degrees Fahrenheit. The patient was mildly tachycardic, not hypoxic or hypotensive. The patient did have white count of 16.5 with left shift. BUN and creatinine were normal. Liver enzymes are normal. Urine was negative. [place] PCR was negative. The patient did have a CT of abdomen and pelvis which did show postsurgical changes seen in the gallbladder fossa. These is peripheral loculated enhancing fluid collection in the gallbladder fossa measuring 4.7 x 3.4 x 2.5 cm with some mild inflammatory changes with concern for postop seroma possibly related to diverticulitis. The patient did have stool for C diff, which came back positive. Started oral vancomycin. Infectious Disease was consulted for further management of antibiotic therapy. REVIEW OF SYSTEMS: Positive points have been mentioned in HPI. Rest of systems are negative. PAST MEDICAL HISTORY: Recent admission to the hospital for a gangrenous cholecystitis, hypertension, hyperlipidemia, colon cancer. PAST SURGICAL HISTORY: Appendectomy, cholecystectomy, bowel resection. SOCIAL HISTORY: Remote history of smoking. Occasionally drinks. No drug use. FAMILY HISTORY: Father with history of colon cancer. ALLERGIES: No known drug allergies. MEDICATIONS: The patient is currently on Tylenol, Norvasc, aspirin, Lipitor, Coreg, heparin, Flomax, Diovan, vancomycin 125 q6h. PHYSICAL EXAMINATION: VITAL SIGNS: Blood pressure 135/70 with a pulse of 91, temperature 98.7. He is 95% on room air. GENERAL DESCRIPTION: The patient is an elderly male lying in bed in no distress. No tachypnea or accessory muscles of respiration use. HEENT: Examination shows no pallor or scleral icterus. Oral mucous membrane is dry. NECK: Trachea central, no thyromegaly. LUNGS: Unlabored breathing, clear to auscultation anteriorly. No wheeze or crackle. HEART: S1-S2, regular rate and rhythm. ABDOMEN: Soft, no tenderness. No guarding or rigidity. EXTREMITIES: No edema of the feet. SKIN: No rash or mass palpable. NEUROLOGICAL: Patient is awake, alert, oriented times three. Mood and affect normal. LABS: Hemoglobin is 12.7, white count 11.7, admission white count 16.5, BUN of 10, creatinine 0.8. DIAGNOSTIC IMPRESSION: 1. Patient admitted to the hospital with sepsis in this patient who did have fever, elevated white count and tachycardia, significant diarrhea. Source is likely C difficile colitis in this patient who was recently admitted to this facility for a gangrenous cholecystitis status post cholecystectomy. C diff to be the likely source of his sepsis and symptomatology. 2. Patient did have abnormal CT raising question of fluid collection in the gallbladder fossa, possible seroma and the patient clinically not behaving as an abscess. The patient's white count and fever responded to the oral vancomycin and no other antibiotic therapy. PLAN: 1. Vancomycin 125 mg p.o. q.6 hours. 2. The patient has been advised to increase the probiotic and yogurt intake. 3. We will follow on his clinical condition and further adjust medication if needed. Thank you for this consultation. Will follow this patient along with you. MMODL / IJN: [id number] /
[2020-12-05] MEDS: HEPARIN SODIUM,PORCINE/PF 5,000 UNIT/0.5 ML SYRINGE SQ SCH (07:46)
[2020-12-05] MEDS: carvediloL 12.5 MG TAB PO SCH (07:46)
[2020-12-05] MEDS: amLODIPine 10 MG TAB PO SCH (07:47)
[2020-12-05] MEDS: ASPIRIN 81 MG PO SCH (07:47)
[2020-12-05] MEDS: VANCOMYCIN 125 MG CAPSULE PO SCH ×2 (07:47→12:39)
[2020-12-05] MEDS: ATORVASTATIN 40 MG TAB PO SCH (07:47)
[2020-12-05] MEDS: TAMSULOSIN 0.4 MG CAP.ER.24H PO SCH (07:47)
--- NOTE | 2020-12-05 09:52 | P.PN ---
Subjective Progress Note Date: 12/05/20 Hospital course: Patient is a very pleasant 70-year-old male with a past medical history of hypertension, hyperlipidemia, BPH, and colon cancer status post resection 21 years ago. Patient presented to the emergency department on 12/03/20 with a chief complaint of fever and diarrhea status post recently undergoing a laparoscopic cholecystectomy on 10/21/[address] Booth secondary to findings of a necrotic gallbladder with mural wall abscess which resulted in extended course of IV antibiotics followed by 10 day course of oral antibiotics. Patient reports he recently completed these antibiotics approximately 10 days ago and was concerned when he developed a fever and diarrhea. Upon arrival to the ER patient was found to have elevated temp of 101.6F, tachycardia with heart rate of 102, leukocytosis with WBC count of 16.5, and was positive for Clostridium difficile infection. A CT abdomen and pelvis without contrast was completed revealing postsurgical changes with a peripheral loculated enhancing fluid collection in the gallbladder fossa measuring 4.7 x 3.4 x 2.5 cm with mild surrounding inflammatory changes reported. Patient was started on oral vancomycin and admitted under our services with consultation to general surgery. Physical exam: Patient was seen and fully evaluated at the bedside this morning. He reports continued episodes of diarrhea but significant improvement from yesterday. He denies having any dominant pain, discomfort, or cramping. He denies having any noted melena or hematochezia. Patient also denies any nausea, vomiting, or hematemesis. Vital signs reviewed and stable. General: Nontoxic, no distress and appears stated age. Derm: Skin warm and dry, normal coloration for ethnicity. Head: Atraumatic, normocephalic and symmetric. Eyes: EOMs intact, no lid lag, and anicteric sclera Mouth: no lip lesions, mucus membranes moist Cardiovascular: regular rate and rhythm with normal S1S2, no murmur, positive posterior tibial pulses bilaterally, and cap refill < 2 seconds. Lungs: Respirations even, regular, and unlabored on room air. Lungs CTA bilate rally, no rhonchi, no rales, no wheezing, and no accessory muscle usage. Abdominal: soft, nontender to palpation, no guarding, no appreciable organomegaly Ext: ROM intact. No gross muscle atrophy, no edema, no contractures Neuro: Speech clear, face symmetrical and CN II-XII grossly intact with no noted focal neuro deficits Psych: Alert and oriented to person, place, time, and situation. Appropriate and pleasant affect. Assessment and Plan of Care: Acute severe C. diff colitis -Continue oral vancomycin for 10 days -Tylenol as needed for fever -Continue fluid hydration with IV fluids -Contact precautions Abnormal CT findings of loculated fluid collection in gallbladder fossa status post recent cholecystectomy on 10/21/20 -A CT abdomen and pelvis without contrast was completed revealing postsurgical changes with a peripheral loculated enhancing fluid collection in the gallbladder fossa measuring 4.7 x 3.4 x 2.5 cm with mild surrounding inflammatory changes reported. -NPO until cleared by general surgery -Consult to Gen. surgery Hypertension -Monitor vital signs and continue daily medication regimen with amlodipine and carvedilol Hyperlipidemia -Continue daily medication regimen with simvastatin 80 mg nightly. CODE STATUS: Full code DVT prophylaxis: Heparin Discussed with: Patient, patient's , and RN Anticipated discharge date: Clinical course to determine Anticipated discharge place: Home A total of 45 minutes was spent on the care of this complex patient more than 50% of the time was spent in counseling and care coordination. Objective - Vital Signs Vital signs: Vital Signs Temp 97.9 F 12/05/20 04:45 Pulse 85 12/05/20 04:45 Resp 16 12/05/20 04:45 BP 132/73 12/05/20 04:45 Pulse Ox 98 12/05/20 04:45 Intake & Output 12/04/20 12/05/20 12/05/20 18:59 06:59 18:59 Intake Total 1420 1300 Balance 1420 1300 Intake: Intake, IV Titration 1420 1000 Amount Sodium Chloride 0.9% 1, 1000 000 ml @ 130 mls/hr IV . Q7H42M DIMITRIOS Rx#:[id number] Sodium Chloride 0.9% 1, 1420 000 ml @ 130 mls/hr IV . Q7H42M STA Rx#:[id number] Oral 300 Other: Voiding Method Toilet Toilet Toilet # Voids 5 # Bowel Movements 4 - Labs CBC & Chem 7: 12/04/20 05:16 12/04/20 05:16 Labs: Abnormal Lab Results - Last 24 Hours (Table) 12/04/20 Range/Units 05:16 Glucose 119 H (70-110) mg/dL Microbiology - Last 24 Hours (Table) 12/03/20 17:41 Blood Culture - Preliminary Blood No Growth after 24 hours 12/03/20 17:41 Blood Culture - Preliminary Blood No Growth after 24 hours
[2020-12-05 13:03] VITALS: BP 132/72; PULSE 69; RESP 17; TEMP 98.1
--- NOTE | 2020-12-05 13:03 | P.DS ---
Providers Date of admission: 12/03/20 21:03 Expected date of discharge: 12/05/20 Attending physician: Kendal Love MD Consults: 12/03/20 21:03 Consult Physician Urgent Consulting Provider: Bobbi Booth Consult Reason/Comments: Postsurgical complications Do you want consulting provider notified?: Yes 12/04/20 11:59 Consult Physician Routine Consulting Provider: Charleen Valladares Consult Reason/Comments: c.diff colitis Do you want consulting provider notified?: Yes Primary care physician: Rip Jung MD Hospital Course: Discharge Diagnosis: Acute severe C. diff colitis Abnormal CT findings of loculated fluid collection in gallbladder fossa status post recent cholecystectomy on 10/21/20 -A CT abdomen and pelvis without contrast was completed revealing postsurgical changes with a peripheral loculated enhancing fluid collection in the gallbladder fossa measuring 4.7 x 3.4 x 2.5 cm with mild surrounding inflammat ory changes reported. -NPO until cleared by general surgery -Consult to Gen. surgery Hypertension -Monitor vital signs and continue daily medication regimen with amlodipine and carvedilol Hyperlipidemia -Continue daily medication regimen with simvastatin 80 mg nightly. Hospital Course: Patient is a very pleasant 70-year-old male with a past medical history of hypertension, hyperlipidemia, BPH, and colon cancer status post resection 21 years ago. Patient presented to the emergency department on 12/03/20 with a chief complaint of fever and diarrhea status post recently undergoing a laparoscopic cholecystectomy on 10/21/[address] Booth secondary to findings of a necrotic gallbladder with mural wall abscess which resulted in extended course of IV antibiotics followed by 10 day course of oral antibiotics. Patient reports he recently completed these antibiotics approximately 10 days ago and was concerned when he developed a fever and diarrhea. Upon arrival to the ER patient was found to have elevated temp of 101.6F, tachycardia with heart rate of 102, leukocytosis with WBC count of 16.5, and was positive for Clostridium difficile infection. A CT abdomen and pelvis without contrast was completed revealing postsurgical changes with a peripheral loculated enhancing fluid collection in the gallbladder fossa measuring 4.7 x 3.4 x 2.5 cm with mild surrounding inflammatory changes reported. Patient was started on oral vancomycin and admitted under our services with consultation to general surgery. Patient was seen and fully evaluated by general surgery, no plans for surgical intervention and patient was cleared from surgical standpoint. ID was also consulted recommending continuation of oral vancomycin 125 mg daily 10 days with encouragement to increase probiotic and yogurt intake. Patient was rehydrated with IV fluids and reports resolution of previously reported diarrhea. Patient is stable for discharge home at this time. Patient to follow up outpatient with PCP in 1-2 days and educated on importance of taking medication exactly as prescribed and completing entire course. Physical exam: Patient was seen and fully evaluated at the bedside this morning. He reports resolution of diarrhea and continues to deny having any adominant pain, nausea, vomiting, melena, hematochezia, or any difficulties with her changes in his urinary function. Vital signs reviewed and stable. General: Nontoxic, no distress and appears stated age. Derm: Skin warm and dry, normal coloration for ethnicity. Head: Atraumatic, normocephalic and symmetric. Eyes: EOMs intact, no lid lag, and anicteric sclera Mouth: no lip lesions, mucus membranes moist Cardiovascular: regular rate and rhythm with normal S1S2, no murmur, positive posterior tibial pulses bilaterally, and cap refill < 2 seconds. Lungs: Respirations even, regular, and unlabored on room air. Lungs CTA bilat erally, no rhonchi, no rales, no wheezing, and no accessory muscle usage. Abdominal: soft, nontender to palpation, no guarding, no appreciable organomegaly Ext: ROM intact. No gross muscle atrophy, no edema, no contractures Neuro: Speech clear, face symmetrical and CN II-XII grossly intact with no noted focal neuro deficits Psych: Alert and oriented to person, place, time, and situation. Appropriate and pleasant affect. A total of 45 minutes of time were spent preparing this complex discharge summary. Plan - Discharge Summary Discharge Rx Participant: No New Discharge Prescriptions: New Vancomycin 125 mg PO QID 8 Days #26 capsule L.acidoph,Paracasei, B.lactis [Probiotic] 1 each PO DAILY 10 Days #10 capsule Continue Simvastatin [Zocor] 80 mg PO DAILY Tamsulosin [Flomax] 0.4 mg PO DAILY Loratadine 10 mg PO DAILY Valsartan [Diovan] 320 mg PO HS Carvedilol [Coreg] 12.5 mg PO BID Aspirin EC [Ecotrin Low Dose] 81 mg PO DAILY amLODIPine [Norvasc] 10 mg PO DAILY Spironolactone 50 mg PO DAILY Discharge Medication List Simvastatin [Zocor] 80 mg PO DAILY 04/17/15 [History] Loratadine 10 mg PO DAILY 04/05/19 [History] Tamsulosin [Flomax] 0.4 mg PO DAILY 04/05/19 [History] Aspirin EC [Ecotrin Low Dose] 81 mg PO DAILY 10/18/20 [History] Carvedilol [Coreg] 12.5 mg PO BID 10/18/20 [History] Spironolactone 50 mg PO DAILY 10/18/20 [History] Valsartan [Diovan] 320 mg PO HS 10/18/20 [History] amLODIPine [Norvasc] 10 mg PO DAILY 10/18/20 [History] L.acidoph,Paracasei, B.lactis [Probiotic] 1 each PO DAILY 10 Days #10 capsule 12/05/20 [Rx] Vancomycin 125 mg PO QID 8 Days #26 capsule 12/05/20 [Rx] Follow up Appointment(s)/Referral(s): Rip Jung MD [Primary Care Provider] - 1-2 days Discharge Disposition: HOME SELF-CARE
--- NOTE | 2020-12-05 15:30 | PN ---
PROGRESS NOTE DATE OF SERVICE: 12/05/2020 REASON FOR FOLLOWUP VISIT: C difficile colitis. INTERVAL HISTORY: The patient is afebrile. The patient is breathing comfortably. The patient denies having any chest pain. No shortness of breath or cough. No abdominal pain. Diarrhea has improved. No blood or mucus in the stool. PHYSICAL EXAMINATION: Blood pressure 132/72 with a pulse of 69, temperature 98.1, he is 94% on room air. General description is an elderly male lying in bed in no distress. Respiratory system: Unlabored breathing, clear to auscultation anteriorly. Heart S1, S2. Regular rate and rhythm. Abdomen soft, no tenderness. Extremities: No edema of the feet. LABS: No new labs have been obtained today. DIAGNOSTIC IMPRESSION AND PLAN: 1. Patient with C difficile colitis. Seems to have shown overall clinical improvement on oral vancomycin. Plan for a 10 day course of oral vanco and close outpatient followup. 2. Patient with abnormal CT showing a collection in the right upper quadrant area. Clinically not behaving as a gallbladder fossa abscess with no pain, no tenderness and the patient's fever responded to the treatment for C difficile. Hence, recommend no further antibiotic and close outpatient followup. Questions and concerns were answered. MMODL / IJN: [id number] /
== END 2020-12-05 15:08 | disposition home or self-care (01) | DRG 373 ==
LOC: EC 17:11 → 5NMEDONC 21:03
PROVIDERS: ADMIT Internal Medicine; ATTEND Internal Medicine
DX: A04.72 Enterocolitis due to Clostridium difficile, not specified as recurrent (principal); E78.5 Hyperlipidemia, unspecified; I10 Essential (primary) hypertension; N40.0 Benign prostatic hyperplasia without lower urinary tract symptoms; Z20.822 Contact with and (suspected) exposure to COVID-19; Z79.82 Long term (current) use of aspirin; Z79.899 Other long term (current) drug therapy; Z85.038 Personal history of other malignant neoplasm of large intestine; Z87.891 Personal history of nicotine dependence; Z90.49 Acquired absence of other specified parts of digestive tract
CPT/HCPCS: 36415; 74177; 80048; 80053; 81003; 83605; 85025; 87040; 87324; 87635; 93005; 96361; 96374; 99285

== ENCOUNTER 2021-03-29 08:24 | Day surgery (SDC) | payer MEDICARE, BC ==
[2021-03-24 09:45] VITALS: BMI 28.5
[~2021-03-29 08:24] MED LIST changes: +LIDOCAINE 1% (10MG/ML) FOR IV START INTRADERMA PRN; -LIDOCAINE 1% 20 ML VIAL (10MG/ML) FOR IV START INTRADERMA PRN
[2021-03-29 08:59] VITALS: TEMP 96.7
--- NOTE | 2021-03-29 09:05 | P.GSHP ---
History of Present Illness H&P Date: 03/29/21 CHIEF COMPLAINT: GERD and colon screen HISTORY OF PRESENT ILLNESS: The patient is a 70-year-old male who presents with gastroesophageal reflux disease and need for colon screen. Upper and lower endoscopy were offered for further evaluation and management. PAST MEDICAL HISTORY: Please see list. PAST SURGICAL HISTORY: Please see list. MEDICATIONS: Please see list. ALLERGIES: Please see list. SOCIAL HISTORY: No illicit drug use FAMILY HISTORY: No reports of Crohn disease or ulcerative colitis. REVIEW OF ORGAN SYSTEMS: CONSTITUTIONAL: No reports of fevers or chills. GI: Denies any blood in stools or constipation. PHYSICAL EXAM: VITAL SIGNS: Stable GENERAL: Well-developed pleasant in no acute distress. HEENT: No scleral icterus. Extraocular movements grossly intact. Moist buccal mucosa. NECK: Supple without lymphadenopathy. CHEST: Unlabored respirations. Equal bilateral excursions. CARDIOVASCULAR: Regular rate and rhythm. Distal 2+ pulses. ABDOMEN: Soft, nondistended. MUSCULOSKELETAL: No clubbing, cyanosis, or edema. ASSESSMENT: 1. Gastroesophageal reflux disease 2. Colon screen. PLAN: 1. Recommend proceeding with an upper and lower endoscopy Past Medical History Past Medical History: Cancer, Hyperlipidemia, Hypertension, Prostate Disorder Additional Past Medical History / Comment(s): hx colon CA 21 yrs ago-no chemo or radiation, BPH, RECENT DAILY DIARRHEA FOR ABOUT 2 WEEKS NOW History of Any Multi-Drug Resistant Organisms: None Reported Past Surgical History: Appendectomy, Bowel Resection, Cholecystectomy, Orthopedic Surgery Additional Past Surgical History / Comment(s): COLON CANCER BOWEL RESECTION-3 inches removed, COLONOSCOPY, EGD, LT KNEE Past Anesthesia/Blood Transfusion Reactions: No Reported Reaction Smoking Status: Former smoker - Past Family History Father Family Medical History: Cancer Additional Family Medical History / Comment(s): colon CA,mets Medications and Allergies Home Medications Medication Instructions Recorded Confirmed Type Simvastatin [Zocor] 80 mg PO DAILY 04/17/15 03/29/21 History Loratadine 10 mg PO DAILY 04/05/19 03/29/21 History Tamsulosin [Flomax] 0.4 mg PO DAILY 04/05/19 03/29/21 History Aspirin EC [Ecotrin Low Dose] 81 mg PO DAILY 10/18/20 03/29/21 History Carvedilol [Coreg] 12.5 mg PO BID 10/18/20 03/29/21 History Spironolactone 50 mg PO DAILY 10/18/20 03/29/21 History Valsartan [Diovan] 320 mg PO HS 10/18/20 03/29/21 History amLODIPine [Norvasc] 10 mg PO DAILY 10/18/20 03/29/21 History L.acidoph,Paracasei, B.lactis 1 each PO DAILY 10 Days #10 capsule 12/05/20 03/29/21 Rx [Probiotic] Allergies Allergy/AdvReac Type Severity Reaction Status Date / Time No Known Allergies Allergy Verified 03/29/21 09:01 Surgical - Exam Vital Signs Temp Pulse Resp BP Pulse Ox 96.7 F L 65 16 130/62 96 03/29/21 08:50 03/29/21 08:50 03/29/21 08:50 03/29/21 08:50 03/29/21 08:50
[2021-03-29] MEDS ORDERED: PROPOFOL 10 MG/ML 20 ML VIAL IV ONE (09:31)
--- NOTE | 2021-03-29 09:56 | P.PCN ---
Date of Procedure: 03/29/21 Description of Procedure: PREOPERATIVE DIAGNOSIS: Change in bowel habits with diarrhea History of Clostridium difficile colitis POSTOPERATIVE DIAGNOSIS: Change in bowel habits with diarrhea History of Clostridium difficile colitis Pandiverticulosis Colitis OPERATION: Colonoscopy to the cecum, ileocecal valve and appendiceal orifice. Colonoscopy with random cold forceps biopsies SPECIMENS: Stool cultures, random biopsies SURGEON: Bobbi Booth MD. ANESTHESIA: MAC. INDICATIONS: The patient is a 70-year-old male who presents for colonoscopy screening. Benefits and risks were described and informed consent was obtained. DESCRIPTION OF PROCEDURE: The patient had undergone Sutab prep. The patient had been brought into the operating room and laid in the left lateral decubitus position. After adequate intravenous sedation, the rectum was examined with 2% lidocaine jelly. No external hemorrhoids were encountered. The rectal tone was within normal limits. No lesions were palpated in the rectal vault. An Olympus colonoscope was advanced until the cecum, ileocecal valve and appendiceal orifice were clearly viewed. The prep was excellent. Scattered diverticulosis was encountered. No colonic polyps were found. Random biopsies with cold forceps for colitis. Stool cultures were obtained. Retroflexion of the scope demonstrated grade 1 internal hemorrhoids without active bleeding or inflammation. The colon was desufflated. The patient had tolerated the procedure well. Withdrawal time was over 6 minutes. FINDINGS: Aronchick preparation quality scale 1 (1-5) Internal hemorrhoids, grade 1 No external prolapsed hemorrhoids. No arteriovenous malformations. No adenomatous polyps. Random biopsies for colitis Stool cultures obtained RECOMMENDATIONS: Lower endoscopy in 5 years, 2025 Plan - Discharge Summary Discharge Rx Participant: Yes New Discharge Prescriptions: Continue Simvastatin [Zocor] 80 mg PO DAILY Tamsulosin [Flomax] 0.4 mg PO DAILY Loratadine 10 mg PO DAILY Valsartan [Diovan] 320 mg PO HS Carvedilol [Coreg] 12.5 mg PO BID Aspirin EC [Ecotrin Low Dose] 81 mg PO DAILY amLODIPine [Norvasc] 10 mg PO DAILY Spironolactone 50 mg PO DAILY L.acidoph,Paracasei, B.lactis [Probiotic] 1 each PO DAILY 10 Days #10 capsule Discharge Medication List Simvastatin [Zocor] 80 mg PO DAILY 04/17/15 [History] Loratadine 10 mg PO DAILY 04/05/19 [History] Tamsulosin [Flomax] 0.4 mg PO DAILY 04/05/19 [History] Aspirin EC [Ecotrin Low Dose] 81 mg PO DAILY 10/18/20 [History] Carvedilol [Coreg] 12.5 mg PO BID 10/18/20 [History] Spironolactone 50 mg PO DAILY 10/18/20 [History] Valsartan [Diovan] 320 mg PO HS 10/18/20 [History] amLODIPine [Norvasc] 10 mg PO DAILY 10/18/20 [History] L.acidoph,Paracasei, B.lactis [Probiotic] 1 each PO DAILY 10 Days #10 capsule 12/05/20 [Rx] Follow up Appointment(s)/Referral(s): Bobbi Booth MD [STAFF PHYSICIAN] - 04/08/21 Patient Instructions/Handouts: Diverticulosis Diet (GEN), Diverticulosis (DC) Activity/Diet/Wound Care/Special Instructions: Repeat colonoscopy 5 years, 2025 Discharge Disposition: HOME SELF-CARE
--- NOTE | 2021-03-29 09:57 | P.PCN ---
Date of Procedure: 03/29/21 Description of Procedure: PREOPERATIVE DIAGNOSIS: Gastroesophageal reflux disease. Epigastric abdominal pain POSTOPERATIVE DIAGNOSIS: Gastroesophageal reflux disease. Epigastric abdominal pain OPERATION: Esophagogastroduodenoscopy with biopsies along antrum. SURGEON: Bobbi Booth MD ANESTHESIA: MAC. INDICATIONS: The patient is a 70-year-old male who presents with a history of reflux disease. Benefits and risks of the procedure were described. Informed consent was obtained. DESCRIPTION: The patient was brought into the endoscopy suite and laid in the left lateral decubitus position. An Olympus gastroscope was passed along the posterior oropharynx down to the distal esophagus where the squamocolumnar junction was encountered at 39 cm from the incisors. The stomach was entered and no bile reflux was found. Additional findings are listed below. Biopsies with cold forceps were obtained of the antrum. The first through third portion of the duodenum was examined and unremarkable. Retroflexion of the scope confirmed Hill grade 3 lower esophageal valve. The squamocolumnar junction demonstrated LA grade A erosive esophagitis. The stomach was desufflated. The patient tolerated the procedure well. FINDINGS: Squamocolumnar junction 39 cm from the incisors. Diaphragmatic hiatus at 40 cm. Hiatal hernia, 1 cm Hill grade 3 lower esophageal valve. LA grade A erosive esophagitis. No active duodenitis. Chronic gastritis RECOMMENDATIONS: Upper endoscopy as needed.
[2021-03-29 10:28] VITALS: BP 111/55; PULSE 58; RESP 20
== END 2021-03-29 10:34 | disposition home or self-care (01) ==
LOC: ORWHC2ENDO 08:24
PROVIDERS: ATTEND Surgery Plastic and Reconstructive Surgery
DX: Z12.11 Encounter for screening for malignant neoplasm of colon (principal); Z86.19 Personal history of other infectious and parasitic diseases; K57.30 Diverticulosis of large intestine without perforation or abscess without bleeding; K64.0 First degree hemorrhoids; K21.9 Gastro-esophageal reflux disease without esophagitis; K22.10 Ulcer of esophagus without bleeding; K29.50 Unspecified chronic gastritis without bleeding; E78.5 Hyperlipidemia, unspecified; I10 Essential (primary) hypertension; Z85.038 Personal history of other malignant neoplasm of large intestine; Z90.49 Acquired absence of other specified parts of digestive tract; Z87.891 Personal history of nicotine dependence; Z80.0 Family history of malignant neoplasm of digestive organs; Z79.82 Long term (current) use of aspirin; Z79.899 Other long term (current) drug therapy; I38 Endocarditis, valve unspecified; N40.0 Benign prostatic hyperplasia without lower urinary tract symptoms
CPT/HCPCS: 87324; 83993; 87045; 87046; 45380; 43239; J2704; 88305

== ENCOUNTER → 2023-11-21 | Outpatient (CLI) | payer MEDICARE, BC ==
--- NOTE | 2023-11-21 11:51 | US ---
EXAMINATION TYPE: US kidneys/renal and bladder DATE OF EXAM: 11/21/2023 COMPARISON: CT CLINICAL INDICATION: Male, 73 years old with history of N18.2 CKD STAGE 2; CKD EXAM MEASUREMENTS: Right Kidney: 11.2 x 5.4 x 5.6 cm Left Kidney: 12.1 x 5.6 x 5.0 cm Right Kidney: No hydronephrosis or masses seen, lower pole gassed out Left Kidney: No hydronephrosis, possible 8mm calculus at mid Bladder: wnl Bilateral Jets seen: No There is no evidence for hydronephrosis at this point in time. No masses are identified. The urinar y bladder is anechoic. Bilateral ureteral jets are seen. IMPRESSION: Nonobstructing left-sided nephrolithiasis.
--- NOTE | 2023-11-21 17:23 | CA ---
Stress Echo Report Josef Alvarenga Age: 73 Gender: M : 1950 Exam Date: 11/21/2023 10:30 Exam Location: [place] [facility] Ht (in): 70 Wt (lb): 215 Ordering Physician: David Galvan MD Referring Physician: Noelle Granger Draw In Hand: Coreen Asif RDCS Technologist Procedure CPT: Indication: I34.1 nonrheumatic mitral valve regurgitation ICD-9 Codes: Rhythm: Patient History: HTN, HYPERCHOLESTEROLEMIA, FAMILY HX OF HEART DISEASE, PRIOR SMOKER Cardiac Medications: Medications in past 24 hours: Contrast: N/A Stress Results Protocol: Fredo Total dose(mL): Exercise Duration (min:sec): 6:[address] Depression (mm): Angina Score: Hutchison Score: METS: 7.3 Resting HR: 114 Resting BP: 156 / 67 Peak HR: 150 Peak BP: 206 / 68 Max Predicted HR: 149 101 % Max Predicted HR Target HR: 127 Double Product: [id number] Stress Summary: BP Response: Reason for Termination: MAX EXERTION/TARGET HT Cardiac Symptoms: NO SYMPTOMS ECG Analysis Resting ECG: Normal sinus rhythm with right bundle branch block Stress ECG: Patient exercised on Fredo protocol for 6 minutes achieving 7 mets 85% of predicted maximal heart rate without chest pain or diagnostic ST segment depression Arrhythmia: Echo Analysis Resting Echo: Baseline echo shows normal left ventricular size wall motion systolic function Aortic valve leaflets appear thickened with mild restriction in leaflet mobility Peak Echo Analysis: Normal hyperdynamic response MEASUREMENTS (Male/Female) Normal Values DOPPLER AV Peak Velocity 230.9 cm/s AV Peak Gradient 21.3 mmHg AV Mean Velocity 151.1 cm/s AV Mean Gradient 11.1 mmHg AV Velocity Time Integral 44.6 cm LVOT Peak Velocity 130.7 cm/s LVOT Peak Gradient 6.8 mmHg LVOT Velocity Time Integral 29.6 cm CONCLUSIONS Average exercise tolerance in Inconclusive EKG part of the stress test due to baseline EKG abnormalities No evidence of ischemia Obtain a 2-D echo for further evaluation of the aortic valve Dr. Oskar Galvan MD (Electronically Signed) Final Date: 21 November 2023 17:22
== END | disposition home or self-care (01) ==
LOC: RADNMMAIN 09:52
PROVIDERS: ATTEND Internal Medicine
DX: I34.0 Nonrheumatic mitral (valve) insufficiency (principal); I35.1 Nonrheumatic aortic (valve) insufficiency; N18.2 Chronic kidney disease, stage 2 (mild); N20.0 Calculus of kidney; R94.31 Abnormal electrocardiogram [ECG] [EKG]
CPT/HCPCS: 76770; 93351

== ENCOUNTER → 2024-04-25 | Outpatient (CLI) | payer MEDICARE, BC ==
--- NOTE | 2024-04-25 11:33 | XR ---
Chest, 2 view. HISTORY: Leukocytosis COMPARISON: 10/18/2020 TECHNIQUE: PA and lateral views the chest are obtained. FINDINGS: The lungs are clear and there is no consolidative or interstitial opacity. There is no pleural effusion or pneumothorax. The heart, pulmonary vasculature, mediastinum and zuleyka appear normal. The osseous structures are intact. IMPRESSION: No significant abnormality seen. No acute cardiopulmonary disease. [facility], Workstation: [facility] 04/25/2024 11:30 AM
== END | disposition home or self-care (01) ==
LOC: RADXRMAIN 11:06
PROVIDERS: ATTEND Internal Medicine
DX: D72.829 Elevated white blood cell count, unspecified (principal)
CPT/HCPCS: 71046

== ENCOUNTER → 2024-08-23 | Outpatient (CLI) | payer MEDICARE, BC ==
[2024-08-23 20:10] LABS: Anti-DNA, DS unit <1.0 IU/mL; DNA Double-Stranded Negative (Negative)
[2024-08-27 11:32] LABS: Histone Antibody 0.6 UNITS (<1.0)
== END | disposition home or self-care (01) ==
LOC: LABWHC1 14:43
PROVIDERS: ATTEND Internal Medicine
DX: R76.8 Other specified abnormal immunological findings in serum (principal)
CPT/HCPCS: 36415; 83516; 86225; 86235

== ENCOUNTER → 2024-10-08 | Outpatient (CLI) | payer MEDICARE, BC ==
[2024-10-08 14:53] VITALS: BP 122/59; PULSE 56; RESP 16; TEMP 97.9
--- NOTE | 2024-10-08 15:48 | P.SLEEP ---
History of Present Illness H&P Date: 10/08/24 This is a 74-year-old male patient, referred to me for sleep apnea evaluation. The patient has been experiencing fatigue and the patient has undergone recent investigation and was found to have low testosterone levels and the patient is currently on testosterone replacement therapy. He continues to have ongoing fatigue symptoms with limited sleepiness. Does not fall asleep while driving. Does not fall asleep while watching television or while talking to other individuals. His current [place] score is at 5. He has occasional snoring. He has BPH and the patient wakes up at least twice in the middle of the night to urinate. He goes to bed at around 10 PM and wakes up at 8 AM in the morning. It takes him around 45 minutes to fall asleep. Since his working days, the patient cannot generate immediate sleep. He is currently retired and the patient used to work as a contracted electrician ship. No recent weight gain. He is quite active during the day. No sleep analysis. No hallucinations. No cataplexy. No anxiety or panic attacks. No heartburn. No issues with memory or concentration. No issues with chronic pain. Comorbidities include hypertension, hyperlipidemia, BPH and history of a cancerous colonic polyp that was surgically resected and the patient is post colectomy. No history of any congestion heart failure. No atrial fibrillation. No substance abuse. No head trauma. No personal or family history of obstructive sleep apnea. Patient drinks alcohol socially. No smoking. No excessive utilization of caffeinated beverages. Review of Systems Constitutional: Reports daytime sleepiness, Reports fatigue Eyes: denies as per HPI, denies blurred vision, denies bulging eye, denies decreased vision, denies diplopia, denies discharge, denies dry eye, denies irritation, denies itching, denies pain, denies photophobia, denies loss of peripheral vision, denies loss of vision, denies tunnel vision/blind spots Ears: deny: decreased hearing, ear discharge, earache, tinnitus Ears, nose, mouth and throat: Reports as per HPI Breasts: absent: as per HPI, gynecomastia Cardiovascular: Reports as per HPI Respiratory: Reports snoring Gastrointestinal: Reports as per HPI Genitourinary: Reports as per HPI, Reports nocturia Musculoskeletal: Reports arm numbness/tingling Musculoskeletal: absent: ankle pain, ankle stiffness, ankle swelling, as per HPI, elbow pain, elbow stiffness, elbow swelling, foot pain, foot stiffness, foot swelling, hand pain, hand stiffness, hand swelling, hip pain, hip stiffness, hip swelling, knee pain, knee stiffness, knee swelling, shoulder pain, shoulder stiffness, shoulder swelling, wrist pain, wrist stiffness, wrist swelling Integumentary: Reports as per HPI Neurological: Reports as per HPI Psychiatric: Reports as per HPI, Reports sleep disturbances Endocrine: Reports fatigue Hematologic/Lymphatic: Reports as per HPI Past Medical History Past Medical History: Cancer, Hyperlipidemia, Hypertension, Prostate Disorder Additional Past Medical History / Comment(s): hx colon CA 21 yrs ago-no chemo or radiation, BPH, RECENT DAILY DIARRHEA FOR ABOUT 2 WEEKS NOW, arthritis unknown type History of Any Multi-Drug Resistant Organisms: None Reported Past Surgical History: Appendectomy, Bowel Resection, Cholecystectomy, Orthopedic Surgery Additional Past Surgical History / Comment(s): COLON CANCER BOWEL RESECTION-3 inches removed, COLONOSCOPY, EGD, LT KNEE Past Anesthesia/Blood Transfusion Reactions: No Reported Reaction Past Psychological History: No Psychological Hx Reported Smoking Status: Former smoker Past Alcohol Use History: Occasional Additional Past Alcohol Use History / Comment(s): quit smoking 35 yrs ago,smoked approx 16 yrs appd Past Drug Use History: None Reported - Past Family History Father Family Medical History: Cancer Additional Family Medical History / Comment(s): colon CA,mets Mother Family Medical History: Coronary Artery Disease (CAD), Hyperlipidemia, Hypertension Medications and Allergies Home Medications Medication Instructions Recorded Confirmed Type Simvastatin [Zocor] 80 mg PO DAILY 04/17/15 03/29/21 History Loratadine 10 mg PO DAILY 04/05/19 03/29/21 History Tamsulosin [Flomax] 0.4 mg PO DAILY 04/05/19 03/29/21 History Aspirin EC [Ecotrin Low Dose] 81 mg PO DAILY 10/18/20 03/29/21 History Spironolactone 50 mg PO DAILY 10/18/20 03/29/21 History Valsartan [Diovan] 320 mg PO HS 10/18/20 03/29/21 History amLODIPine [Norvasc] 10 mg PO DAILY 10/18/20 03/29/21 History carvediloL [Coreg] 12.5 mg PO BID 10/18/20 03/29/21 History L.acidoph,Paracasei, B.lactis 1 each PO DAILY 10 Days #10 capsule 12/05/2003/29 Rx [Probiotic] Allergies Allergy/AdvReac Type Severity Reaction Status Date / Time No Known Allergies Allergy Verified 03/29/21 09:01 Physical Exam Vitals: Vital Signs Temp Pulse Resp BP Pulse Ox 10/08/24 14:52 97.9 F 56 L 16 122/59 95 Intake and Output 10/08/24 10/08/24 10/08/24 06:59 14:59 22:59 Other: Weight 98.883 kg The patient appeared well nourished and normally developed. Vital signs as documented. The patient has a body mass index of 32. Mallampati class III Head exam is unremarkable. No scleral icterus or corneal arcus noted. Neck is without jugular venous distension, thyromegaly, or carotid bruits. Carotid upstrokes are brisk bilaterally. Lungs are clear to auscultation and percussion. Cardiac exam reveals the PMI to be normally sized and situated. Rhythm is regular. First and second heart sounds normal. No murmurs, rubs or gallops. Abdominal exam reveals normal bowel sounds, no masses, no organomegaly and no aortic enlargement. Extremities are nonedematous and both femoral and pedal pulses are normal. Examination of the skin revealed no evidence of significant rashes, suspicious appearing nevi or other concerning lesions. Neurologically, the patient is awake and alert and the patient does not have any focal neurological deficit. Cranial nerves are essentially intact. Assessment and Plan Plan: Chronic fatigue with limited sleepiness. Carnegie score is currently at 5. Patient is being considered for obstructive sleep apnea and the patient was referred to me accordingly to have further investigation. He has occasional snoring. He does have nocturia. Body mass index is 32. Chronic fatigue Hypotestosteronism, currently on testosterone replacement therapy Hypertension Hyperlipidemia BPH with symptoms of nocturia the patient wakes up twice in the middle of the night to urinate History of cancerous malignant colonic polyp post colectomy. Body mass index is 32 Carnegie score is at 5 Plan Will order full polysomnography to evaluate the patient's sleep efficiency, architecture and continuity. Will also look for any underlying sleep breathing disorder and nocturnal oxygen desaturations. Will make further recommendations accordingly. Overall clinical suspicion of obstructive sleep apnea is low based on the reported history. Implement good sleep hygiene measures. Maintain regular sleep schedule. Avoid alcohol drinking at least 3 hours prior to going to bed. Will continue to follow. Sleep Note - Sleep Data ESS Total: 5 - Sleep Note Sleep Note: Temperature: 97.9 F Pulse Rate: 56 Respiratory Rate: 16 Blood Pressure: 122/59 SpO2: 95 Height: 5 ft 9.2 in Weight: 98.883 kg BMI: Neck Circumference: 17.5
== END ==
LOC: 3 N SLEEP 14:13
PROVIDERS: ATTEND Internal Medicine Critical Care Medicine
DX: G47.33 Obstructive sleep apnea (adult) (pediatric) (principal); I10 Essential (primary) hypertension; E78.5 Hyperlipidemia, unspecified; N40.0 Benign prostatic hyperplasia without lower urinary tract symptoms; Z85.038 Personal history of other malignant neoplasm of large intestine; Z87.891 Personal history of nicotine dependence
CPT/HCPCS: 99211

== ENCOUNTER 2024-10-21 19:41 | Outpatient (CLI) | payer MEDICARE, BC ==
--- NOTE | 2024-10-28 23:27 | P.PCN ---
Date of Procedure: 10/21/24 Operative Findings: Polysomnography report History This is a 74-year-old male patient, referred to me for sleep apnea evaluation. The patient has been experiencing fatigue and the patient has undergone recent investigation and was found to have low testosterone levels and the patient is currently on testosterone replacement therapy. He continues to have ongoing fatigue symptoms with limited sleepiness. Does not fall asleep while driving. Does not fall asleep while watching television or while talking to other individuals. His current [place] score is at 5. He has occasional snoring. He has BPH and the patient wakes up at least twice in the middle of the night to urinate. He goes to bed at around 10 PM and wakes up at 8 AM in the morning. It takes him around 45 minutes to fall asleep. Since his working days, the patient cannot generate immediate sleep. He is currently retired and the patient used to work as a contracted journeyman apprentice electricians. No recent weight gain. He is quite active during the day. No sleep analysis. No hallucinations. No cataplexy. No anxiety or panic attacks. No heartburn. No issues with memory or concentration. No issues with chronic pain. Comorbidities include hypertension, hyperlipidemia, BPH and history of a cancerous colonic polyp that was surgically resected and the patient is post colectomy. No history of any congestion heart failure. No atrial fibrillation. No substance abuse. No head trauma. No personal or family history of obstructive sleep apnea. Patient drinks alcohol socially. No smoking. No excessive utilization of caffeinated beverages. Physical findings The patient's weight is 98 kg, height is 5 feet and 9 inches Technical description The patient was studied using a standard complex polysomnography protocol that included recording of the Lead II EKG, Central, occipital and frontal EEG, right and left outer canthus EOG, submental EMG, right and left anterior tibialis EMG, respiratory airflow by thermocouple and or pressure/flow transducer, respiratory efforts by abdominal and thoracic PVDF belts, oxygen saturation by cable oximetry. Position by observation synchronized the PSG. Equipment used: [employer]. Sleep architecture The total recording duration was for 1.5 minutes. Total sleep time was 291.5 minutes. The wake after sleep onset time was 74 minutes. Overall sleep efficiency was 72.6%. Latency to sleep onset was 36 minutes. The latency to REM sleep was 90 minutes. The sleep architecture was catheterized by 16.1% stage I sleep, 65.4% stage II sleep, 0% stage III sleep and a total of 19.2% REM sleep. The total arousal index was 20.2 Respiratory analysis The sleep study showed a total of 263 obstructive events of which 3 were obstructive apneas, 1 was mixed apnea and 259 were obstructive hypopneas. The resulting AHI was 52.9. The patient also had 4 central events with a central apnea index of 0.4. The overall apnea hypopnea index was 52.9. The disease was worse during REM sleep with an AHI of 77.1. Oxygenation analysis The baseline pulse ox while awake was 92%. Lowest oxygen saturation was 72% during during REM sleep and the patient spent approximately 38 minutes of the sleep time had a pulse ox of less than 89% and this accounts for 9.5% of the overall sleep time. Sleep continuity summary The patient had a total of 98 arousals with an arousal index of 20.2. The respiratory arousal index was 8 Periodic limb movement activity The patient had a total of 232 periodic limb movement activity with an index of 47.8. Those periodic limb movements are not associated with arousals Cardiac summary Average heart rate was 68 with a minimum heart rate of 63 and a maximum heart of 72 Assessment Obstructive sleep apnea, severe with a baseline AHI of 52.9. Respiratory events are associated form of obstructive hypopneas, worse during REM sleep and associated with significant nocturnal oxygen desaturation Nocturnal oxygen saturation secondary to [place], minimum pulse ox was 72% Chronic fatigue with limited sleepiness. [place] score is currently at 5. Snoring body mass index is 32. Chronic fatigue Hypotestosteronism, currently on testosterone replacement therapy Hypertension Hyperlipidemia BPH with symptoms of nocturia the patient wakes up twice in the middle of the night to urinate History of cancerous malignant colonic polyp post colectomy. Plan This patient benefiting from CPAP therapy. The patient was asked to come into the sleep center to undergo a CPAP titration. Implement good sleep hygiene measures. Maintain regular sleep schedule. Avoid alcohol drinking at least 3 hours prior to going to bed. Will continue to follow.
== END 2024-10-22 05:35 | disposition home or self-care (01) ==
LOC: 3 N SLEEP 19:41
PROVIDERS: ATTEND Internal Medicine Critical Care Medicine
DX: G47.33 Obstructive sleep apnea (adult) (pediatric) (principal); I10 Essential (primary) hypertension; E78.5 Hyperlipidemia, unspecified; N40.0 Benign prostatic hyperplasia without lower urinary tract symptoms; R53.82 Chronic fatigue, unspecified; R35.1 Nocturia; Z86.0100 Personal history of colon polyps, unspecified; Z87.891 Personal history of nicotine dependence
CPT/HCPCS: 95810